=== PATIENT | male | born 1950 | race Two or more races ===

== ENCOUNTER 2025-02-20 20:21 | Emergency (ER) | payer OTHER ==
[~2025-02-20] VITALS: Ht 152.4 cm; Wt 113.0 kg
[2025-02-20 20:25] VITALS: BP 135/87; PULSE 85; RESP 16; TEMP 99.1; O2SAT 96
[2025-02-20 21:02] LABS: Hematocrit 44.4 % (41.0-53.0); Hemoglobin 15.3 g/dL (13.5-17.5); Mean Corpuscular Hemoglobin 31.7 pg (28.0-32.0); Mean Corpuscular Volume 92.1 fL (80.0-100.0); Nucleated Red Blood Cells % 0.0 %
[2025-02-20 21:11] LABS: Potassium 3.7 mmol/L (3.5-5.1); Sodium 141 mmol/L (136-145)
[2025-02-20 21:12] LABS: Anion Gap 8 (5-15); Calcium 8.7 mg/dL (8.7-10.4); Carbon Dioxide 25 mmol/L (20-31); Chloride 108 mmol/L (98-107)
[2025-02-20 21:17] LABS: BUN/Creatinine Ratio 9.4 (10.0-20.0); Blood Urea Nitrogen 9 mg/dL (9-23)
[2025-02-20 21:19] LABS: Glucose 208 mg/dL (74-106)
--- NOTE | 2025-02-20 21:54 | DVH ---
SCROTAL ULTRASOUND REASON FOR EXAM: left testicle pain. History of penile pump in the scrotum. COMPARISON: None TECHNIQUE: Real-time sector scans and duplex color flow Doppler imaging of the scrotal contents was performed. FINDINGS: Evaluation is difficult as the patient was unable to tolerate the touch of the ultrasound probe. The right testicle measures 2.2 x 2.7 x 4.2 cm. The left testicle measures 2.3 x 2.7 x 3.8 cm. No testicular mass is identified. Expected flow is seen within the right and left testicle. There is no hyperemia. There is no evidence of hydrocele or varicocele. The epididymides are normal in size. The penile pump is seen within the scrotum. IMPRESSION: Normal appearance of the testes and epididymides. There is a penile pump visualized in the scrotum.
--- NOTE | 2025-02-20 22:21 | ED.PDOC ---
General HPI Comments 74-year-old male who came to ER for testicular pain. Patient has a penile pump inserted in his scrotum. States he has been having left testicular pain since last night, radiating to his left lower quadrant. Denies any urinary symptoms such as dysuria or hematuria. Denies any fever nausea or vomiting. Denies any scrotal swelling Chief Complaint: Testicle Pain Time Seen by MD: 22:21 Reviewed notes: Nurses Notes Allergies: Coded Allergies: NO KNOWN ALLERGIES (Unverified , 02/20/25) Information Source: Patient Mode of Arrival: EMS Severity: Moderate Past Medical History Past Medical History (Other): Bipolar Surgical History (Other): Penile implant Family History Family History: Reviewed,noncontributory to illness Social History Smoker: Non-Smoker Alcohol: Denies ETOH Use Drugs: Denies Drug Use Lives In: Home Constitutional: denies: chills, diaphoresis, fatigue, fever, malaise, sweats, weakness, others EENTM: denies: blurred vision, double vision, ear bleeding, ear discharge, ear drainage, ear pain, ear ringing, eye pain, eye redness, hearing loss, mouth pain, mouth swelling, nasal discharge, nose bleeding, nose congestion, nose pain, photophobia, tearing, throat pain, throat swelling, voice changes, others Respiratory: denies: cough, hemoptysis, orthopnea, SOB at rest, shortness of breath, SOB with excertion, stridor, wheezing, others Cardiovascular: denies: chest pain, dizzy spells, diaphoresis, Dyspnea on exertion, edema, irregular heart beat, left arm pain, lightheadedness, palpitations, PND, syncope, others Gastrointestinal: denies: abdomen distended, abdominal pain, blood streaked bowels, constipated, diarrhea, dysphagia, difficulty swallowing, hematemesis, melena, nausea, poor appetite, poor fluid intake, rectal bleeding, rectal pain, vomiting, others Genitourinary: reports: testicle pain; denies: burning, dysuria, flank pain, f requency, hematuria, incontinence, penile discharge, penile sore, pain, testicle swelling, urgency, others Neurological: denies: dizziness, fainting, headache, left sided numbness, left sided weakness, numbness, paresthesia, pre-existing deficit, right sided numbness, right sided weakness, seizure, speech problems, tingling, tremors, weakness, others Musculoskeletal: denies: back pain, gout, joint pain, joint swelling, muscle pain, muscle stiffness, neck pain, others Integumetry: denies: bruises, change in color, change in hair/nails, dryness, laceration, lesions, lumps, rash, wounds, others Allergic/Immunocompromised: denies: Difficulty Healing, Frequent Infections, Hives, Itching, others Hematologic/Lymphatic: denies: anemia, blood clots, easy bleeding, easy bruising, swollen glands, others Endocrine: denies: excessive hunger, excessive sweating, excessive thirst, excessive urination, flushing, intolerance to cold, intolerance to heat, unexplained weight gain, unexplained weight loss, others Psychiatric: denies: anxiety, bipolar disorder, depression, hopeless, panic disorder, schizophrenia, sleepless, suicidal, others Physical Exam General Appearance: No Apparent Distress, Normal HEENT: Normal ENT Inspection, Pharynx Normal, TMs Normal Neck: Full Range of Motion, Non-Tender, Normal, Normal Inspection Respiratory: Chest Non-Tender, Lungs Clear, No Accessory Muscle Use, No Respiratory Distress, Normal Breath Sounds Cardiovascular: No Edema, No JVD, No Murmur, No Gallop, Normal Peripheral Pul ses, Regular Rate/Rhythm Breast Exam: Deferred Gastrointestinal: No Organomegaly, Non Tender, No Pulsatile Mass, Normal Bowel Sounds, Soft Genitalia: Deferred Pelvic: Deferred Rectal: Deferred Extremities: No calf tenderness, Normal capillary refill, Normal inspection, Normal range of motion, Non-tender, No pedal edema Musculoskeletal : Apperance: Normal Neurologic: Alert, manager center II-XII nml as Tested, No Motor Deficits, Normal Affect, Normal Mood, No Sensory Deficits Cerebellar Function: Normal Reflexes: Normal Skin: Dry, Normal Color, Warm Lymphatic: No Adenopathy Was a procedure done? Was a procedure done?: No Differential Diagnosis Kidney stone (Female): N/A Kidney stone (Male): N/A Penile/Scrotal: Foreign Body, Prostatitis, UTI, Hydrocele X-Ray, Labs, Meds, VS Vital Signs Date Time Temp Pulse Resp B/P (MAP) Pulse Ox O2 Delivery O2 Flow Rate FiO2 02/20/25 20:25 99.1 85 16 135/87 96 99.1 Lab Test 02/20/25 20:55 Range/Units White Blood Count 6.3 4.4-10.8 10^3/uL Red Blood Count 4.82 4.5-5.90 10^6/uL Hemoglobin 15.3 13.5-17.5 g/dL Hematocrit 44.4 41.0-53.0 % Mean Corpuscular Volume 92.1 80.0-100.0 fL Mean Corpuscular Hemoglobin 31.7 28.0-32.0 pg Mean Corpuscular Hemoglobin Concent 34.5 32.0-36.0 g/dL Red Cell Distribution Width 13.8 11.8-14.3 % Platelet Count 223 140-450 10^3/uL Mean Platelet Volume 6.6 L 6.9-10.8 fL Neutrophils (%) (Auto) 70.0 37.0-80.0 % Lymphocytes (%) (Auto) 23.1 10.0-50.0 % Monocytes (%) (Auto) 6.1 0.0-12.0 % Eosinophils (%) (Auto) 0.4 0.0-7.0 % Basophils (%) (Auto) 0.4 0.0-2.0 % Neutrophils # (Auto) 4.4 1.6-8.6 10 ^3/uL Lymphocytes # (Auto) 1.4 0.4-5.4 10 ^3/uL Monocytes # (Auto) 0.4 0-1.3 10 ^3/uL Eosinophils # (Auto) 0 0-0.8 10 ^3/uL Basophils # (Auto) 0 0-0.2 10 ^3/uL Nucleated Red Blood Cells 0.0 % Sodium Level 141 136-145 mmol/L Potassium Level 3.7 3.5-5.1 mmol/L Chloride Level 108 H 98-107 mmol/L Carbon Dioxide Level 25 20-31 mmol/L Anion Gap 8 5-15 Blood Urea Nitrogen 9 9-23 mg/dL Creatinine 0.96 0.700-1.30 mg/dL Glomerular Filtration Rate Calc 82 >90 mL/min BUN/Creatinine Ratio 9.4 L 10.0-20.0 Serum Glucose 208 H 74-106 mg/dL Calcium Level 8.7 8.7-10.4 mg/dL Current Medications Medications (Trade) Dose Ordered Sig/Yared Route Start Time Stop Time Status Last Admin Ketorolac Tromethamine (Toradol Injection) 30 mg ONCE ONCE IM 02/21/25 00:15 02/21/25 00:16 DC 02/21/25 00:25 SCROTAL ULTRASOUND REASON FOR EXAM: left testicle pain. History of penile pump in the scrotum. COMPARISON: None TECHNIQUE: Real-time sector scans and duplex color flow Doppler imaging of the scrotal contents was performed. FINDINGS: Evaluation is difficult as the patient was unable to tolerate the touch of the ultrasound probe. The right testicle measures 2.2 x 2.7 x 4.2 cm. The left testicle measures 2.3 x 2.7 x 3.8 cm. No testicular mass is identified. Expected flow is seen within the right and left testicle. There is no hyperemia. There is no evidence of hydrocele or varicocele. The epididymides are normal in size. The penile pump is seen within the scrotum. IMPRESSION: Normal appearance of the testes and epididymides. There is a penile pump visualized in the scrotum. Time of 1ST Reevaluation: 22:17 Reevaluation 1ST: Unchanged Patient Education/Counseling: Diagnosis, Treatment Family Education/Counseling: No Family Present SEPSIS Sepsis Screen Date sepsis recognized/suspect: Feb 20, 2025 Time Sepsis recognized/suspect: 2024 Recent Procedure: No On Antibiotic Therapy: No Respiratory Rate >20: No Heart Rate >90: No Temp<36 C (96.8 F) or >38.3 C: No SBP <90 or MAP <65 mmHG: No New Acute Mental Status Change: No Is the patient on CPAP, BIPAP,: No Physician Orders Urinalysis (02/20/25 20:47) Testicular Ultrasound (02/20/25 20:47) Vital Signs Date Time Temp Pulse Resp B/P (MAP) Pulse Ox O2 Delivery O2 Flow Rate FiO2 02/20/25 20:25 99.1 85 16 135/87 96 99.1 Laboratory Tests Test 02/20/25 20:55 White Blood Count 6.3 10^3/uL (4.4-10.8) Medications Medications Dose Ordered Sig/Yared Route Start Time Stop Time Status Last Admin Dose Admin Ketorolac Tromethamine 30 mg ONCE ONCE IM 02/21/25 00:15 02/21/25 00:16 DC 12/28/25 00:25 Departure 1 Departure Time of Disposition: 23:55 Impression: Primary Impression: Left testicular pain Additional Impression: Type 2 diabetes mellitus with hyperglycemia Disposition: HOME / SELF CARE / HOMELESS Condition: Stable Discharged With: Self Critical Care Note Critical Care Time?: No Stability Stability form required: No Heart Score Heart Score: Heart Score Response (Comments) Value History N/A 0 EKG N/A 0 Age N/A 0 Risk Factors N/A 0 Troponin N/A 0 Total 0 I personally scribed for RHYS CARBONE MD ([email or web address]) on 02/20/25 at 22:21. Electronically submitted by Tomy Whiting ([email or web address]). RHYS CARBONE MD Feb 20, 2025 22:21
[2025-02-21] MEDS: KETOROLAC TROMETH 60MG/2ML VIAL IM ONE (00:25)
== END 2025-02-21 00:33 | disposition home or self-care (01) ==
LOC: ER 20:21 → EDBD 20:21 → ER 02-21 00:33
DX: N50.812 Left testicular pain (principal); E11.65 Type 2 diabetes mellitus with hyperglycemia; Z79.899 Other long term (current) drug therapy
CPT/HCPCS: 36415; 76870; 80048; 85025; 96372; 99285; J1885